=== PATIENT | male | born 1995 | race African-American/Black ===

== ENCOUNTER 2023-11-16 01:54 | Emergency (ER) | payer MEDICAID ==
[~2023-11-16] VITALS: Ht 175.3 cm; Wt 72.5 kg
[2023-11-16 02:22] VITALS: O2SAT 99
[2023-11-16 06:04] LABS: BASOPHILS % 0.4 % (0.0-2.0); EOSINOPHILS % 0.4 % (0.0-5.0); HEMATOCRIT. 41.1 % (42.0-52.0); HEMOGLOBIN. 13.6 g/dL (14.0-18.0); LYMPHOCYTES % 20.8 % (20.0-50.0); MEAN CORPUSCULAR HEMOGLOBIN 28.3 pg (28.0-32.0); MEAN CORPUSCULAR HGB CONC 33.1 g/dL (31.0-37.0); MEAN CORPUSCULAR VOLUME 85.4 fL (80.0-94.0); MEAN PLATELET VOLUME 7.1 fl (7.4-10.4); MONOCYTES % 6.1 % (2.0-8.0); NEUTROPHILS % 72.3 % (40.0-76.0); PLATELET 346 x1000/uL (130-400); RED BLOOD CELL COUNT 4.81 mill/uL (4.7-6.1); RED CELL DISTRIBUTION WIDTH 13.3 % (11.6-14.6); WHITE BLOOD COUNT 11.2 x1000/uL (4.5-11.0)
[2023-11-16 06:08] LABS: CHLORIDE 99 mEq/L (98-107); POTASSIUM 4.3 mEq/L (3.5-5.1); SODIUM 136 mEq/L (136-145)
[2023-11-16 06:09] LABS: CALCIUM 10.3 mg/dL (8.7-10.4); CARBON DIOXIDE 28 mEq/L (21-32)
[2023-11-16 06:14] LABS: CREATININE 1.3 mg/dL (0.6-1.3); GLUCOSE 85 mg/dL (70-105); UREA NITROGEN BLOOD 8 mg/dL (9-23)
[2023-11-16] MEDS: ONDANSETRON HCL 4MG/2ML INJ IV ONE (07:09)
[2023-11-16] MEDS: SODIUM CHLORIDE 0.9% 1,000 ML IV ONE (07:09)
[2023-11-16] MEDS: MAGNESIUM 1 G PREMIX 100 ML IV ONE (07:29)
[2023-11-16 09:14] VITALS: BP 140/76; PULSE 126; RESP 19; TEMP 98
== END 2023-11-16 09:20 | disposition home or self-care (01) ==
LOC: ER 01:54
DX: F10.20 Alcohol dependence, uncomplicated (principal); E83.42 Hypomagnesemia; Z86.59 Personal history of other mental and behavioral disorders; Y90.9 Presence of alcohol in blood, level not specified
CPT/HCPCS: 99284; 96365; 96375; 80048; 83735; 84100; 85025; 36415; J3475; J2405; J7030